=== PATIENT | male | born 1950 | race Caucasian/White ===

== ENCOUNTER 2017-09-27 03:50 | Inpatient (IN) | payer OTHER ==
[~2017-09-27] VITALS: Ht 167.6 cm; Wt 200.0 kg
[~2017-09-27 03:50] MED LIST: FLAGYL500MG PO; IMODIUM A-D2 M2 PO; INTEGRA CAPSUL1 EACH; LEVAQUIN500 MG; LOTREL 10/40 MG1 CAP PO; METOPROLOL SUCC25 MG PO; OMEPRAZOLE10 MG; OMEPRAZOLE20 M1 PO; PERCOCET 10-321 EACH; PROBIOTIC1 EAC1 PO; TOPROL XL25 M1; ZANTAC300 MG PO
== END 2017-09-30 11:01 | disposition home or self-care (01) | DRG 390 ==
LOC: ER 03:50 → SURH 09:26 → SEC-K 09:26 → SURH 17:49
DX: K56.690 Other partial intestinal obstruction (principal)